=== PATIENT | female | born 2005 | race Caucasian/White ===

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

== ENCOUNTER 2023-06-25 21:11 | Emergency (ER) | payer OTHER ==
[~2023-06-25] VITALS: Ht 149.9 cm; Wt 49.9 kg
[~2023-06-25 21:11] MED LIST changes: +FAMO-90 PO; +MAG-43 PO; +MENT7.6L13 PO; -MENT7.6L6 PO; +ONDA-188 PO
[2023-06-25 21:25] VITALS: BP 121/73; PULSE 85; RESP 17; TEMP 97.9; O2SAT 100
[2023-06-25] MEDS ORDERED: IBUP-1842 PO (23:56)
[2023-06-25] MEDS ORDERED: ACET-2619 PO (23:56)
[2023-06-25] MEDS ORDERED: AMOX500C25 PO (23:56)
== END 2023-06-26 00:10 | disposition home or self-care (01) ==
LOC: MED 21:11
DX: T16.1XXA Foreign body in right ear, initial encounter (principal); H66.91 Otitis media, unspecified, right ear; Z79.899 Other long term (current) drug therapy; X58.XXXA Exposure to other specified factors, initial encounter; Y92.89 Other specified places as the place of occurrence of the external cause; Y93.89 Activity, other specified; Y99.8 Other external cause status
CPT/HCPCS: 69200; 99284